=== PATIENT | female | born 2005 | race African-American/Black ===

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

== ENCOUNTER 2023-02-01 19:18 | Emergency (ER) | payer OTHER, MEDICAID ==
[~2023-02-01] VITALS: Ht 162.6 cm; Wt 87.8 kg
[~2023-02-01 19:18] MED LIST changes: +ONDA4TAB12 PO
[2023-02-01 19:20] VITALS: BP 117/77; PULSE 90; RESP 18; TEMP 97.1; O2SAT 98
--- NOTE | 2023-02-01 19:50 | NUR ---
irrigation service technician at bedside.
--- NOTE | 2023-02-01 21:35 | NUR ---
REVIEWED LVNS ASSESSMENT, AGREE WITH ASSESSMENT.
== END 2023-02-01 21:01 | disposition home or self-care (01) ==
LOC: ER 19:19
DX: O9A.212 Injury, poisoning and certain other consequences of external causes complicating pregnancy, second trimester (principal); T14.90XA Injury, unspecified, initial encounter; Z3A.24 24 weeks gestation of pregnancy; Z91.041 Radiographic dye allergy status; Z79.899 Other long term (current) drug therapy; V89.2XXA Person injured in unspecified motor-vehicle accident, traffic, initial encounter; Y93.89 Activity, other specified; Y92.89 Other specified places as the place of occurrence of the external cause; Y99.8 Other external cause status
CPT/HCPCS: 76801; 99284